=== PATIENT | female | born 1965 | race Caucasian/White ===

== ENCOUNTER 2025-01-06 09:05 | Outpatient (CLI) | payer BC | END 2025-01-06 09:06 | disposition home or self-care (01) | LOC: BICRAD 09:05 | PROVIDERS: ATTEND Podiatrist | DX: R22.41 Localized swelling, mass and lump, right lower limb (principal); M79.89 Other specified soft tissue disorders; M19.071 Primary osteoarthritis, right ankle and foot; M85.671 Other cyst of bone, right ankle and foot ==